=== PATIENT | female | born 1955 | race Caucasian/White ===

== ENCOUNTER 2016-08-20 08:55 | Day surgery (SDC) | payer OTHER ==
[~2016-08-20] VITALS: Ht 160 cm; Wt 86.1 kg
[~2016-08-20 08:55] MED LIST: ASCO100089 PO; CALCIT PO; CHOL400T3 PO; FLAX100010 PO; GLUC-123 PO; HYDR25TA4 PO; LEVO25TA5 PO; MAGN100T6 PO; MULT-666 PO; PSYL0.5244 PO; Sodium Chloride LOK Flush 10 mL Syringe IV PRN; VITA150T PO; fentaNYL-PF 50 mCg/mL 2 mL Inj IVPUSH PRN
[2016-08-20] MEDS ORDERED: Propofol 10,000 mCg/mL 20 mL Inj ONE (08:56)
[2016-08-20] MEDS ORDERED: Ketamine 10 mg/mL 20 mL Inj ONE (08:56)
[2016-08-20 09:45] VITALS: BP 137/74; PULSE 62; RESP 17; O2SAT 99
[2016-08-20] MEDS: 0.9% Sodium Chloride 1,000 ML IV SCH ×2 (11:23→11:35)
--- NOTE | 2016-08-20 11:33 | PCM.HPANE ---
Patient Data Date of Service: August 20, 2016 Surgeon Admitting Provider: Attending Provider:Oneida Brizuela MD Primary Care Physician:Hayley Connolly MD Other Provider: Reason for Visit Screening Z12.11, Phx Colon Polyp Z86.010 Ht/WT & BMI Height (Feet): 5 Height (Inches): 3 Weight (Kilograms): 86.14 Body Mass Index 33.00 Allergies Coded Allergies: tetracycline (Verified Allergy, Unknown, Rash, 02/04/09) Past Anesthesia History Anesthesia History: Denies:: Anesthesia Reactions, Fam Malignant Hypertherm, Malignant Hyperthermia Diabetes History Hx Diabetes?: No MRSA MRSA: No Medications Reported Medications Multivitamin (Once Daily)1 Each Tablet1 Each PO DAILY 08/18/16 Cholecalciferol (Vitamin D3) (Vitamin D3)400 Unit Tab.bhyd155 Unit PO DAILY 08/18/16 Magnesium Citrate 100 Mg [id number] Mg PO DAILY 04/07/15 Calcium Citrate 250 Mg Lezkvr129 Mg PO DAILY 04/07/15 Ascorbic Acid (Vitamin C)1,000 Mg Tab.chew1,000 Mg PO DAILY Ref 0 04/07/15 Gluc/Nate-MSM#2/C/D3/Wong/Born (Eotivqptmc-Qnuyrdpjdjo-OUO Tab)1 Each Tablet1 Each PO BID 04/07/15 Vitamin B Complex & Vit C No.4 (Super B Complex)150 Mg Vhcggu519 Mg PO DAILY 04/07/15 Psyllium Husk (Daily Fiber)0.52 Gram Capsule2 Capsule PO BID 04/07/15 Flaxseed (Flaxseed Oil)1,000 Mg Capsule1,000 Mg PO DAILY 04/07/15 Hydrochlorothiazide 25 Mg Ojxtvz96 Mg PO DAILY Ref 0 04/07/15 Levothyroxine 25 Mcg Hwpqlr81 Mcg PO DAILY Ref 0 04/07/15 Discontinued Reported Medications Therapeutic Multivit/Minerals-Expunged Drug, 1 Ea Tab1 Tab PO DAILY Ref 0 09/26/08 IBUPROFEN-Expunged Drug, Do Not Renew! 200 Mg Xhunbo295 Mg PO BID Ref 0 09/26/08 History History of ENT Problems?: No HEENT History: Denies:: Abnormal Airway Hearing Problem Denture Type: None Teeth Condition: Within Normal Limits Hx of Heart Problems?: No Cardiovascular History: Denies:: Abdominal Aortic Aneurism Hx of Respiratory Problem?: Yes Respiratory History: Positive for:: Asthma (as a child) Hx Neurologic Problems?: No Neurological History: Denies:: CVA Hx of GI Problems?: Yes Hx of Problems?: No HX of Peritoneal Dialysis: No Female Hx: Denies:: Currently Hx Musculoskeletal Problems?: No Psycho Social History: Denies:: Anxiety Hx Depression Hx Surgeries?: Yes (cyst, tonsils) Hx Any Other Health Problems?: Yes Hx Diabetes: No Hx Alcohol Use: Yes (occasionly) Stop/Bang Treated for Sleep Apnea?: No Do You Have a CPAP Machine?: No S-Snoring: Do You Snore Loudly: No T-Tired: feel tired, fatigued: No O-Obsered: Observed not breath: No P-Blood Pressure: treated: Yes B- Body Mass Index > 35 kg/m2: No A- Age over 50: Yes N- Neck Large Circumference: No G- Gender Male: No MELISSA Total Score: 2 Risk Assessment Category Category 1A: Patient has history of documented sleep apnea, and HAS NOT received any narcotic, sedative or anesthesia administration during this stay. Category 1B: Patient has history of documented sleep apnea, and HAS received any narcotic , sedative or anesthesia administration during this stay Category 2: Patient has SUSPECTED Obstructive Sleep Apnea, and HAS received any narcotic , sedative or anesthesia administration during this stay. Category 3: Patient has SUSPECTED Obstructive Sleep Apnea and HAS NOT received narcotic, sedative or anesthesia administration during this stay. Category 4: Outpatient in Procedural Areas with known sleep apnea or who screen positive for High Risk via the STOP/BANG questionnaire. Exam Exam Vital Signs Vital Signs Date Time Temp Pulse Resp B/P Pulse Ox O2 Delivery O2 Flow Rate FiO2 08/20/16 09:45 62 17 137/74 99 Room Air General Appearance: Cooperative, No Acute Distress HEENT/AIRWAY: MP 2 Lungs: Clear to Auscultation Heart: Regular Rate/Rhythm Meds/Labs/Diagnostics Admission Meds Current Medications Sodium Chloride (Normal Saline) 1,000 ml @ 10 mls/hr Q24H IV Last administered on 08/20/16t 11:23; Start 08/20/16 at 06:00 Plan Impression Patient chart reviewed, patient interviewed and anesthestic plan with risks, benefits, and alternatives discussed, and informed consent obtained. ASA Physical Status: ASA2 Mod Systemic Disease Anesthetic Plan: GA Bene/Risks/Altern/Consents: Yes (rescue sedatio for failied RN sedation. Patient sedated, not fully able to consent. Assistance requested by endoscopy Dr. Gaitan) HP Complete Prior to Induction: Yes Hi Preciado MD August 20, 2016 11:33
[2016-08-20 11:40] VITALS: BP 103/65; PULSE 63; RESP 16; O2SAT 99
[2016-08-20 11:50] VITALS: BP 113/61; PULSE 57; RESP 16; O2SAT 100
--- NOTE | 2016-08-20 21:04 | ENDO ---
[address] [address] ENDOSCOPY PROCEDURE PATIENT: CHEMO JOHNSON : 1955 MR#: [id number] ADMIT: 08/20/2016 JOB ID: [id number] PROCEDURE: Colonoscopy. INDICATION: Screening. Patient's ASA classification is I. Mallampati score is II. MEDICATIONS: Versed at 5 mg, fentanyl 125 mcg. INSTRUMENT USED: PCF-H180AL. Prep quality was good. PROCEDURE DETAILS: After informed consent was obtained, the patient was brought into the GI suite, where she was placed on oxygen via nasal cannula and monitored with continuous pulse oximeter, telemetry, and blood pressure monitoring. A time-out was performed. Then, she was placed in a left lateral decubitus position and medications were administered for sedation. Digital rectal exam was performed and was unremarkable. The colonoscope was then inserted into the rectum and advanced, approximately the distal transverse colon. Beyond this point, I was unable to advance the colonoscope secondary to patient discomfort. Further medications were administered. However, despite that, I was unable to advance the scope. At this point, Anesthesia assistance was requested. Following deeper sedation, we were able to advance the scope to the cecum. Once the cecum was reached, colonoscope was withdrawn back into the rectum and the mucosa and lumen were examined. In the rectum, retroflexion was performed. Following retroflexion, remaining air in the rectum was suctioned and procedure was completed. FINDINGS: Normal exam from rectum to cecum. IMPRESSION: Normal colonoscopy. RECOMMENDATIONS: Repeat colonoscopy in 8-10 years. Recommend anesthesia assistance for sedation. COMPLICATIONS: None. ESTIMATED BLOOD LOSS: Zero.
== END 2016-08-20 23:59 | disposition home or self-care (01) ==
LOC: END 08:55
PROVIDERS: ATTEND Internal Medicine Gastroenterology
DX: Z12.11 Encounter for screening for malignant neoplasm of colon (principal); Z86.010 Personal history of colon polyps; E03.9 Hypothyroidism, unspecified; I10 Essential (primary) hypertension
CPT/HCPCS: G0121; J7030